=== PATIENT | male | born 1960 | race Caucasian/White ===

== ENCOUNTER 2017-01-09 17:28 | Emergency (ER) | payer OTHER ==
[~2017-01-09 17:28] MED LIST: CEPHALEXIN500 MG PO; CYMBALTA20 MG PO; FLEXERIL10 MG PO; GABAPENTIN800 MG PO; LISINOPRIL-HCT1 EACH PO; OXYMORPHONE HCL20 MG PO; PRINZIDE 20-121 EACH PO; SAPHRIS10 MG SL
[2017-01-09 17:53] LABS: EOSINOPHIL (%) 0 % (0-5); HEMATOCRIT 51.3 % (38.0-50.0); IMMATURE GRANULOCYTE (%) 1.5 % (0.0-0.7); IMMATURE GRANULOCYTE COUNT 0.1 K/uL; INSTRUMENT ABS NEUTROPHIL CT 2.5 K/uL; MCV 103.2 FL (86-99); MEAN PLAT.VOLUME 10.4 uM^3 (9.0-12.4); MONOCYTE (%) 2.9 % (3-12); MONOCYTE COUNT 0.1 K/uL (0-0.8); NEUTROPHIL COUNT 2.5 K/uL (1.8-6.4); NRBC (%) 0.6 /100 WBC (0-0); PLATELET COUNT 159 K/uL (156-360); RBC DIS.WIDTH-CV 16.1 % (11.8-14.6); RBC DIS.WIDTH-SD 61.8 % (39-53); RED BLOOD COUNT 4.97 M/uL (4.00-5.50); WHITE BLOOD COUNT 4.8 K/uL (4.1-10.2)
[2017-01-09 18:05] LABS: INTER. NORMALIZED RATIO 1.4; PROTHROMBIN TIME 14.2 (9.2-11.2); PTT 39.5 (25-32)
[2017-01-09 18:11] LABS: AMYLASE 148 IU/L (1-118); CHLORIDE 98 mEq/L (99-109); POTASSIUM 4.1 mEq/L (3.7-5.4); SODIUM 143 mEq/L (136-147)
[2017-01-09 18:13] LABS: GLUCOSE 374 mg/dL (70-99)
[2017-01-09 18:14] LABS: TROP-I INTERPRETATION NEGATIVE; TROPONIN-I 0.05 ng/mL (0.0-0.30)
[2017-01-09 18:15] LABS: ANION GAP 30 MEQ/L (2-14)
[2017-01-09 18:16] LABS: SERUM ETHYL ALCOHOL < 10 mg/dL
[2017-01-09 18:16] LABS: BASE EXCESS -17.2 mEq/L (-3 to +3); CARBOXY HGB 3.7 % (0-5); DEVICE 840; FI02 100 %; MECHANICAL RATE 16 resp/min; METHEMOGLOBIN 0.7 % (0-1.5); MODE A/C; PCO2 90 mm Hg (35-45); PEEP 8 CM/H20; PO2 72 mm Hg (80-100); SITE FEMRAL SICK; TIDAL VOLUME 450 ML
[2017-01-09 18:17] LABS: GFR ESTIMATE (CALCULATED) 42 mL/min/
[2017-01-09 18:17] LABS: pH 6.91 (7.35-7.45)
[2017-01-09 18:18] LABS: UREA NITROGEN (BUN) 16 mg/dL (9-23)
[2017-01-09 18:20] LABS: LIPASE 39 U/L (1.0-51.0)
[2017-01-09 18:32] LABS: ADD MIUA? NO; BILIRUBIN NEGATIVE; BLOOD NEGATIVE; COLOR YELLOW ((YELLOW)); GLUCOSE (STRIP) NEGATIVE; KETONES NEGATIVE; LEUKOCYTES NEGATIVE; NITRITE NEGATIVE; PROTEIN (STRIP) 30; SPECIFIC GRAVITY 1.015 (1.000-1.030); UCUL ADDED? NO
[2017-01-09 18:36] LABS: AMPHETAMINE NEGATIVE (500 ng/mL); BARBITURATES NEGATIVE (200 ng/mL); BENZODIAZEPINES PRESUMPTIVE POSITIVE (150 ng/mL); COCAINE NEGATIVE (150 ng/mL); METHADONE NEGATIVE (200 ng/mL); METHAMPHETAMINE NEGATIVE (500 ng/mL); OPIATES (MORPHINE) NEGATIVE (100 ng/mL); OXYCODONE PRESUMPTIVE POSITIVE (100 ng/mL); PHENCYCLIDINE NEGATIVE (25 ng/mL); THC CANNABINOIDS NEGATIVE (50 ng/mL); TRICYCLIC ANTIDEPRESSANTS NEGATIVE (300 ng/mL)
[2017-01-09 18:37] LABS: ADD MEDTOX COMMENT Y; INTERNAL CONTROLS VALID? YES; PROPOXYPHENE NEGATIVE (300 ng/mL)
[2017-01-09 18:52] LABS: BASE EXCESS -15.8 mEq/L (-3 to +3); BICARBONATE 16.9 mEq/L (22-26); CARBOXY HGB 3.6 % (0-5); METHEMOGLOBIN 0.7 % (0-1.5); PCO2 70 mm Hg (35-45); PO2 77 mm Hg (80-100)
[2017-01-09 18:53] LABS: COMMENTS - BLOOD GASES C+; DEVICE 840; FI02 100 %; MECHANICAL RATE 20 resp/min; MODE A/C; PEEP 8 CM/H20; SITE LEFT ALINE; TIDAL VOLUME 500 ML; pH 6.99 (7.35-7.45)
[2017-01-09 18:58] LABS: BENZODIAZEPINES QUANT VALUE 0 NG/ML
[2017-01-09 19:00] LABS: BENZODIAZEPINES, URINE SCREEN Negative (200 ng/mL)
[2017-01-09 19:52] LABS: TOTAL BILIRUBIN 0.3 mg/dL (0.0-1.0)
[2017-01-09 19:53] LABS: ALKALINE PHOSPHATASE 104 IU/L (3-129)
[2017-01-09 19:56] LABS: BASE EXCESS -17.3 mEq/L (-3 to +3); CARBOXY HGB 2.9 % (0-5); COMMENTS - BLOOD GASES C+; DEVICE 840; FI02 100 %; METHEMOGLOBIN 0.8 % (0-1.5); MODE A/C; PCO2 47 mm Hg (35-45); PEEP 8 CM/H20; PO2 148 mm Hg (80-100); SITE LEFT A LINE; TIDAL VOLUME 500 ML
[2017-01-09 19:56] LABS: DIRECT BILIRUBIN 0.1 mg/dL (0.0-0.3)
[2017-01-09 19:57] LABS: pH 7.05 (7.35-7.45)
[2017-01-09 21:17] LABS: BASE EXCESS -19.5 mEq/L (-3 to +3); BICARBONATE 10.5 mEq/L (22-26); CARBOXY HGB 2.5 % (0-5); PCO2 39 mm Hg (35-45); PO2 75 mm Hg (80-100); SITE LEFT A LINE
[2017-01-09 21:18] LABS: COMMENTS - BLOOD GASES C+; DEVICE 840; FI02 80 %; MECHANICAL RATE 35 resp/min; MODE A/C; PEEP 10 CM/H20; TIDAL VOLUME 500 ML; pH 7.04 (7.35-7.45)
[2017-01-09 21:18] LABS: HEMATOCRIT 45.1 % (38.0-50.0); MCH 31.4 PG (29.0-34.0); MCHC 30.6 G/DL (30.0-36.0); MCV 102.5 FL (86-99); MEAN PLAT.VOLUME 10.2 uM^3 (9.0-12.4); NRBC (%) 0.2 /100 WBC (0-0); PLATELET COUNT 124 K/uL (156-360); RBC DIS.WIDTH-CV 16.1 % (11.8-14.6); RBC DIS.WIDTH-SD 61.7 % (39-53)
[2017-01-09 21:19] LABS: WHITE BLOOD COUNT 11.9 K/uL (4.1-10.2)
[2017-01-09 21:28] LABS: PROTHROMBIN TIME 20.9 (9.2-11.2)
[2017-01-09 21:38] LABS: CHLORIDE 101 mEq/L (99-109); SODIUM 148 mEq/L (136-147)
[2017-01-09 21:39] LABS: MAGNESIUM 1.9 mg/dL (1.3-2.7)
[2017-01-09 21:40] LABS: POTASSIUM 3.1 mEq/L (3.7-5.4)
[2017-01-09 21:42] LABS: ANION GAP 37 MEQ/L (2-14)
[2017-01-09 21:43] LABS: GLUCOSE 483 mg/dL (70-99); TOTAL BILIRUBIN 0.6 mg/dL (0.0-1.0)
[2017-01-09 21:44] LABS: ALKALINE PHOSPHATASE 95 IU/L (3-129)
[2017-01-09 21:45] LABS: GFR ESTIMATE (CALCULATED) 33 mL/min/
[2017-01-09 21:46] LABS: UREA NITROGEN (BUN) 17 mg/dL (9-23)
== END 2017-01-09 22:25 ==
LOC: EME 17:28 → EDOF 20:32
PROVIDERS: Emergency Medicine; Obstetrics & Gynecology
PROC: 05H633Z Insertion of Infusion Device into Left Subclavian Vein, Percutaneous Approach (ICD-10-PCS; principal; 2017-01-09)
PROC: 5A2204Z Restoration of Cardiac Rhythm, Single (ICD-10-PCS; 2017-01-09)
PROC: 03HY32Z Insertion of Monitoring Device into Upper Artery, Percutaneous Approach (ICD-10-PCS; 2017-01-09)
PROC: 5A12012 Performance of Cardiac Output, Single, Manual (ICD-10-PCS; 2017-01-09)
PROC: 5A0935Z Assistance with Respiratory Ventilation, Less than 24 Consecutive Hours (ICD-10-PCS; 2017-01-09)
DX: T40.2X2A Poisoning by other opioids, intentional self-harm, initial encounter (principal); I46.8 Cardiac arrest due to other underlying condition
CPT/HCPCS: 36600; 71010; 80048; 80053; 80076; 81003; 82150; 82330; 82803; 83605; 83690; 83735; 84100; 84484; 84999; 85025; 85027; 85610; 85730; 86850; 86900; 86901; 87040; 87070; 87205; 93005; 94002; 94799; 99281; 99285; C1894; G0480; J0171; J0282; J1265; J2310